=== PATIENT | female | born 1970 | race Caucasian/White ===

== ENCOUNTER 2023-12-15 21:19 | Emergency (ER) | payer SELFPAY ==
[2023-12-15] MEDS: Ibuprofen 600 MG Tab PO ONE (21:54)
[2023-12-15] MEDS: Acetaminophen 500 MG Tab PO ONE (21:55)
[2023-12-15] MEDS: Acetaminophen/HYDROcodone 325-5 MG Tab PO ONE (22:16)
== END 2023-12-15 22:21 | disposition home or self-care (01) ==
LOC: KA.ED 21:19
DX: S62.632A Displaced fracture of distal phalanx of right middle finger, initial encounter for closed fracture (principal); Z88.2 Allergy status to sulfonamides; W23.1XXA Caught, crushed, jammed, or pinched between stationary objects, initial encounter
CPT/HCPCS: 73130-RT; 99283; A9270-GY